=== PATIENT | male | born 1980 | race Two or more races ===

== ENCOUNTER → 2022-07-01 15:11 | Outpatient (REF) | payer OTHER, SELFPAY | LOC: HO.SL 15:11 | PROVIDERS: Visit Provider Internal Medicine | DX: G47.33 Obstructive sleep apnea (adult) (pediatric) (principal); E66.9 Obesity, unspecified; M26.19 Other specified anomalies of jaw-cranial base relationship | CPT/HCPCS: 95806 ==

== ENCOUNTER → 2022-07-10 07:57 | Outpatient (BNVA) | payer SELFPAY | PROVIDERS: PCP Internal Medicine | DX: R76.11 Nonspecific reaction to tuberculin skin test without active tuberculosis (principal) ==